=== PATIENT | female | born 1945 | race Asian ===

== ENCOUNTER 2018-04-17 05:49 | Day surgery (SDC) | payer OTHER ==
[~2018-04-17] VITALS: Ht 152.4 cm; Wt 53.9 kg
[2018-04-17] MEDS ORDERED: AMLODIPINE (07:07)
[2018-04-17] MEDS ORDERED: ALLOPURINOL (07:07)
[2018-04-17] MEDS ORDERED: LOSARTAN (07:07)
[2018-04-17] MEDS ORDERED: REPAGLINIDE (07:07)
[2018-04-17] MEDS ORDERED: LABETALOL (07:07)
[2018-04-17] MEDS ORDERED: PRAVASTATIN (07:07)
[2018-04-17 07:17] VITALS: BP 191/78; PULSE 96; RESP 20
--- NOTE | 2018-04-17 07:45 | PREAC ---
Date/Time of Note Date/Time of Note DATE: 04/17/18 TIME: 07:43 Anesthesia Eval and Record Evaluation Time Pre-Procedure Interview DATE: 04/17/18 TIME: 07:43 Age 73 Sex female NPO: 8 hrs Preoperative diagnosis screening Planned procedure colonoscopy Past Medical History Past Medical History: Includes Cardio: HTN Endo: Diabetes Surgery & Anesthesia Issues No known issue Meds Anticoagulation: No Beta Collette within 24 hr: Yes Reason Beta Collette not given: Other (na) Reported Medications [Allopurinol] No Conflict Check 04/17/18 [Pravastatin] No Conflict Check 04/17/18 [Repaglinide] No Conflict Check 04/17/18 [Labetalol] No Conflict Check 04/17/18 [Amlodipine] No Conflict Check 04/17/18 [Losartan] No Conflict Check 04/17/18 Meds reviewed: Yes Allergies Coded Allergies: No Known Allergy (Unverified , 04/17/18) Allergies Reviewed: Yes Labs/Studies Labs Reviewed: Reviewed by anesthesiologist test: N/A Pre-procedure Exam Last vitals Vital Signs Date Temp Pulse Resp B/P (MAP) Pulse Ox O2 O2 Flow FiO2 Time Delivery Rate 04/17/18 97.3 96 20 191/78 98 Room Air 07:17 (115) Airway: Adequate mouth opening, Adequate thyromental dist Mallampati: Mallampati II Teeth: Normal Lung: Normal Heart: Normal ASA Physical Status ASA physical status: 2 Emergency: None Planned Anesthetic General/MAC: MAC Pre-operative Attestations Prior to commencing anesthesia and surgery, the patient was re-evaluated, there was verification of: *The patient's identity *The results of appropriate recent lab work and preoperative vital signs *The above evaluation not changing prior to induction *Anesthetic plan, risk benefits, alternative and complications discussed with patient/family; questions answered; patient/family understands, accepts and wishes to proceed. GURJIT WALKER DO Apr 17, 2018 07:45
[2018-04-17] MEDS ORDERED: LIDOCAINE 2% (SDV) 5 ML INJ ONE (07:54)
[2018-04-17] MEDS ORDERED: PROPOFOL 40 ML ONE (07:54)
[2018-04-17] MEDS ORDERED: FENTAnyl 50 MCG/ML VIAL ONE (07:54)
[2018-04-17] MEDS ORDERED: MIDAZOLAM 1 MG/ML 2 ML INJ ONE (07:54)
--- NOTE | 2018-04-17 08:33 | PAC ---
Date/Time of Note Date/Time of Note DATE: 04/17/18 TIME: 08:31 Post-Anesthesia Notes Post-Anesthesia Note Last documented vital signs Vital Signs Date Temp Pulse Resp B/P (MAP) Pulse Ox O2 O2 Flow FiO2 Time Delivery Rate 04/17/18 97.3 96 20 191/78 98 Room Air 0830 (115) Activity: WNL Respiratory function: WNL Cardiovascular function: WNL Mental status: Baseline Pain reasonably controlled: Yes Hydration appropriate: Yes Nausea/Vomiting absent: Yes GURJIT WALKER DO Apr 17, 2018 08:33
[2018-04-17 08:51] VITALS: BP 132/68; PULSE 83; RESP 20
== END 2018-04-17 11:10 | disposition home or self-care (01) ==
LOC: GIL 05:49
PROVIDERS: ATTEND Internal Medicine Gastroenterology
DX: Z12.11 Encounter for screening for malignant neoplasm of colon (principal); D12.3 Benign neoplasm of transverse colon; K64.8 Other hemorrhoids; K57.30 Diverticulosis of large intestine without perforation or abscess without bleeding; I10 Essential (primary) hypertension; E11.9 Type 2 diabetes mellitus without complications
CPT/HCPCS: 45380; 82962; 88305; J2250; J3010; Z7610